=== PATIENT | male | born 1975 | race Caucasian/White ===

== ENCOUNTER 2016-11-22 17:05 | Emergency (ER) | payer SELFPAY ==
--- NOTE | 2016-11-24 13:16 | ER ---
ADMIT: 11/22/2016 RM/LOC: ER [facility] MR#: [id number] [id number] DEANDRE BAUGH FRANCINE , Emergency Room Report SEX: M AGE: 41 : 1975 DATE: 11/22/2016 HISTORY OF PRESENT ILLNESS: The patient is a 41-year-old male with past medical history of kidney stone, came to the ER with chief complaint of left flank pain which radiates to the left inner thigh for 1 day. The patient also complains of nausea and vomiting without fever. The patient denies any urinary symptoms, hematuria, or dysuria. The patient denies any fever. PHYSICAL EXAMINATION: GENERAL: In the ER, the patient is in mild distress. VITAL SIGNS: Stable. The patient is afebrile. HEAD AND NECK: Negative and noncontributory. CHEST: Negative and noncontributory. ABDOMEN: The patient has no abdominal tenderness, but has very mild left CVA tenderness. The patient has no rebound or guarding. The rest of the physical examination is negative and noncontributory. EMERGENCY DEPARTMENT COURSE: Urine was negative for any red blood cells. The lipase was 205 with a WBC of 14.6. Hemoglobin of 15.9. Creatinine was 1.6, and we have no information about the previous creatinine level. Considering the patient's elevated white BC, although the urine did not show any red blood cells, there is a possibility of obstructing stone. The patient was signed off to the next shift to follow up on the CT scan of the abdomen for renal colic and renal colic protocol and follow up accordingly. Celestine Conde MD/ penelope JOB #: [id number] CC: Celestine Conde MD, Attending Physician
== END 2016-11-22 21:40 | disposition home or self-care (01) ==
LOC: ER 17:05
DX: N20.1 Calculus of ureter (principal); Z79.899 Other long term (current) drug therapy